=== PATIENT | female | born 2000 | race Caucasian/White ===

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

== ENCOUNTER 2019-01-13 00:18 | Emergency (ER) | payer OTHER ==
--- NOTE | 2019-01-13 00:44 | ED ---
Skin Complaint - HPI Summary HPI Summary: Patient is a 18 y/o F presenting to [facility] with complaints of blister to her right thigh. She states that she had right hip surgery on January 03, 2019 done at [facility]. Stitches were removed 02/08/19, steri-strips were placed. One fell off tonight, 01/12/19, to reveal a blister. Patient and father, who is in the room, are concerned for possible infection. On triage, pain is denied. Nothing is noted to aggravate/alleviate Sx. Home medications and allergies are reviewed. - History of Current Complaint Chief Complaint: EDHipPelvisInjury Time Seen by Provider: 01/13/19 00:38 Stated Complaint: HIP SWELLING AFTER SURG. Hx Obtained From: Patient Onset/Duration: Still Present Timing: Constant Current Severity: None Pain Intensity: 0 Pain Scale Used: 0-10 Numeric Skin Location: Other: - right thigh blister Aggravating Symptom(s): Nothing Alleviating Symptom(s): Nothing - Allergy/Home Medications Allergies/Adverse Reactions: Allergies Allergy/AdvReac Type Severity Reaction Status Date / Time No Known Allergies Allergy Verified 01/13/19 00:22 PMH/Surg Hx/FS Hx/Imm Hx Endocrine/Hematology History: Denies: Hx Anticoagulant Therapy, Hx Diabetes Cardiovascular History: Denies: Hx Cardiac Arrest, Hx Pacemaker/ICD History: Denies: Hx Dialysis, Hx Renal Disease Sensory History: Denies: Hx Hearing Aid Neurological History: Denies: Hx CVA Psychiatric History: Denies: Hx Panic Disorder - Surgical History Surgery Procedure, Year, and Place: [facility] Infectious Disease History: No Infectious Disease History: Denies: Traveled Outside the [place] in Last 30 Days - Family History Known Family History: Negative: Hypertension, Diabetes - Social History Alcohol Use: None Hx Substance Use: No Substance Use Type: Reports: None Hx Tobacco Use: No Smoking Status (MU): Never Smoked Tobacco Review of Systems Negative: Fever - on vitals, temp is 99.1 F Skin: Other - right thigh blister All Other Systems Reviewed And Are Negative: Yes Physical Exam - Summary Physical Exam Summary: Appearance: Well-appearing, Well-nourished, lying in bed comfortable Skin: The incisions overlying the right proximal thigh are clean and dry. There is a small area of blistering without swelling. Eyes: sclera anicteric, no conjunctival pallor ENT: mucous membranes moist Neck: deferred Respiratory: No signs of respiratory distress Cardiovascular: Appears well perfused, pulses are nml Abdomen: deferred Musculoskeletal: Moving all 4 extremities without obvious discomfort Neurological: Awake and alert, mentation is normal, speech is fluent and appropriate Psychiatric: affect is normal, does not appear anxious or depressed Triage Information Reviewed: Yes Vital Signs On Initial Exam: Initial Vitals Temp Pulse Resp BP Pulse Ox 99.1 F 84 15 119/82 96 01/13/19 00:20 01/13/19 00:20 01/13/19 00:20 01/13/19 00:20 01/13/19 00:20 Vital Signs Reviewed: Yes Procedures - Sedation Patient Received Moderate/Deep Sedation with Procedure: No Diagnostics - Vital Signs Vital Signs Temp Pulse Resp BP Pulse Ox 01/13/19 00:20 99.1 F 84 15 119/82 96 - Laboratory Lab Statement: Any lab studies that have been ordered have been reviewed, and results considered in the medical decision making process. Course/Dx - Course Course Of Treatment: Patient is a 18 y/o F presenting to [facility] with complaints of blister to her right thigh. She states that she had right hip surgery on January 03, 2019 done at [facility]. Stitches were removed 02/08/19, steri- strips were placed. One fell off [facility], 01/12/19, to reveal a blister. Patient and father, who is in the room, are concerned for possible infection. Skin: The incisions overlying the right proximal thigh are clean and dry. There is a small area of blistering without swelling. Patient was advised to place band-aid over blister to keep it from rupturing prematurely and informed that the blister will likely not need any further care. She was discharged to home. - Diagnoses Provider Diagnoses: Blister of right thigh Discharge ED - Sign-Out/Discharge Documenting (check all that apply): Patient Departure - discharge - Discharge Plan Condition: Stable Disposition: HOME Patient Education Materials: Blister (ED) Referrals: Gwendolyn Uriostegui MD [Primary Care Provider] - Additional Instructions: Your wound looks to be healing well. The area of concern is a blister, a complication of the steri strips that were holding the wound together. This is not a major problem, the blister should heal like any blister would and does not require any special care other than a bandaid to avoid rupturing it prematurely. - Attestation Statements Document Initiated by Scribe: Yes Documenting Scribe: JEANNIE PRIEST Provider For Whom Roshniibcruzito is Documenting (Include Credential): QUAN DE JESUS MD Scribe Attestation: IJEANNIE, scribed for QUAN DE JESUS MD on 01/13/19 at 0049. Status of Scribe Document: Ready
[2019-01-13 00:55] VITALS: BP 111/73
== END 2019-01-13 00:53 | disposition home or self-care (01) ==
LOC: ED 00:18
DX: S70.321A Blister (nonthermal), right thigh, initial encounter (principal); X58.XXXA Exposure to other specified factors, initial encounter; Y92.9 Unspecified place or not applicable; Z98.890 Other specified postprocedural states
CPT/HCPCS: 99282

== ENCOUNTER 2019-04-12 01:05 | Emergency (ER) | payer OTHER ==
--- NOTE | 2019-04-12 04:30 | ED ---
Lower Extremity - HPI Summary HPI Summary: Patient is a 18 y/o F presenting to [facility] with complaints of pain to her left first, second, and third toes. 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 Patient's emr trainer wrapped her toes in gauze and placed her in a boot. Patient took ibuprofen around 1700 and oxycodone around 2200. Patient had surgery for hip impingement previously and had the oxycodone leftover from this surgery. NKDA reported. Home medications and allergies are reviewed. No fever as vitals show temp of 98.3 F. - History of Current Complaint Chief Complaint: EDExtremityLower Stated Complaint: L FOOT INJURY PER PT Time Seen by Provider: 04/12/19 03:56 Hx Obtained From: Patient Mechanism Of Injury: Direct Blow Onset of Pain: Hours, Prior to Arrival Onset/Duration: Still Present Severity Currently: Severe Pain Intensity: 8 Pain Scale Used: 0-10 Numeric Timing: Constant, Lasting Hours Location: Is Discrete @ - first, second, and third toes of left foot Associated Signs And Symptoms: Positive: Other - pain at first, second, and third toes of left foot. Negative: Fever - Allergies/Home Medications Allergies/Adverse Reactions: Allergies Allergy/AdvReac Type Severity Reaction Status Date / Time No Known Allergies Allergy Verified 04/12/19 04:08 Home Medications: Home Medications Ondansetron ODT TAB* [Zofran 4 MG Odt TAB*] 4 mg PO Q8H PRN #10 tab.odt [Rx Confirmed 04/12/19] PMH/Surg Hx/FS Hx/Imm Hx Endocrine/Hematology History: Denies: Hx Anticoagulant Therapy, Hx Diabetes Cardiovascular History: Denies: Hx Cardiac Arrest, Hx Pacemaker/ICD History: Denies: Hx Dialysis, Hx Renal Disease Sensory History: Denies: Hx Hearing Aid Neurological History: Denies: Hx CVA Psychiatric History: Denies: Hx Panic Disorder - Surgical History Surgery Procedure, Year, and Place: [facility] Infectious Disease History: No Infectious Disease History: Denies: Traveled Outside the [place] in Last 30 Days - Family History Known Family History: Negative: Hypertension, Diabetes - Social History Alcohol Use: None Hx Substance Use: No Substance Use Type: Reports: None Hx Tobacco Use: No Smoking Status (MU): Never Smoked Tobacco Review of Systems - ROS Summary Review of Systems Summary: Home Medications Medication Instructions Recorded Confirmed Type Ondansetron ODT TAB* [Zofran 4 MG 4 mg PO Q8H PRN #10 tab.odt 04/26/18 04/12/19 Rx Odt TAB*] Negative: Fever - No fever as vitals show temp of 98.3 F. Positive: Myalgia - pain at first, second, and third toes of left foot All Other Systems Reviewed And Are Negative: Yes Physical Exam - Summary Physical Exam Summary: General: Well-developed, Well-nourished female. No acute distress. HEENT: Normocephalic, Atraumatic. Eyes: Conjuctiva normal, PERRL. Oropharynx: Clear, mucous membranes moist, (-) exudates. Neck: Soft, FROM, (-) lymphadenopathy, (-) thyromegaly, (-) JVD. Cardiovascular: Normal sinus rhythm, (-) murmur. Lungs: Clear to auscultation bilaterally (-) wheezes, (-) rales, (-) rhonchi. Abdomen: Soft, non-tender, non-distended, (-) organomegaly, normal bowel sounds. Back: (-) CVA tenderness Extremities: Significant ecchymosis to the first, second, and thirds phalanges of the left foot; fair range of motion, good pulses, bleeding from under the large toenail is controlled, nail is loose. Skin: Warm, dry, (-) rash. Neuro: Alert and oriented x3, moves all extremities equally. No ataxia. No gait disturbance. No sensory deficit. Normal strength, normal sensation. Psychiatric: Mood normal, affect normal. Triage Information Reviewed: Yes Vital Signs On Initial Exam: Initial Vitals Temp Pulse Resp BP Pulse Ox 98.3 F 65 14 114/79 97 04/12/19 01:13 04/12/19 01:13 04/12/19 01:13 04/12/19 01:13 04/12/19 01:13 Vital Signs Reviewed: Yes Procedures - Sedation Patient Received Moderate/Deep Sedation with Procedure: No Diagnostics - Vital Signs Vital Signs Temp Pulse Resp BP Pulse Ox 04/12/19 01:13 98.3 F 65 14 114/79 97 - Laboratory Lab Statement: Any lab studies that have been ordered have been reviewed, and results considered in the medical decision making process. - Radiology LEFT FOOT X-RAY Radiology Interpretation Completed By: ED Physician Summary of Radiographic Findings: NO FRACTURE, NO DISLOCATION, PENDING OFFICIAL REPORT. Lower Extremity Course/Dx - Course Course Of Treatment: 18-year-old female presents with injury of her left foot. She states earlier today while lifting weights with her team she dropped a 45 pound plate onto her first second and third toes. She has had significant pain since then. Her emr trainer wrapped her toes with gauze and has put her in a walking boot for precaution. Patient has good pulses distally. She has bleeding and separation from underneath her great toe nail. Patient was advised she will probably lose the toenail. Other nails appear intact. X-ray shows no obvious fracture. Patient declines crutches. Advised wrapping and protecting the toes. Use as tolerated. Follow-up with orthopedic. Follow-up sooner for any worsening symptoms. - Diagnoses Provider Diagnoses: Contusion of left foot Discharge ED - Sign-Out/Discharge Documenting (check all that apply): Patient Departure - DISCHARGE - Discharge Plan Condition: Stable Disposition: HOME Patient Education Materials: Foot Contusion (ED) Referrals: Gwendolyn Uriostegui MD [Primary Care Provider] - 3 Days Additional Instructions: PLEASE RETURN TO ED FOR ANY NEW OR WORSENING SYMPTOMS. PLEASE FOLLOWUP WITH YOUR PRIMARY CARE PHYSICIAN WITHIN THREE DAYS. - Billing Disposition and Condition Condition: STABLE Disposition: Home - Attestation Statements Document Initiated by Luisa: Yes Documenting Scribe: JEANNIE PRIEST Provider For Whom Luisa is Documenting (Include Credential): CASIMIRO NICOLE MD Scribe Attestation: JEANNIE Gonzalez, scribed for CASIMIRO NICOLE MD on 04/12/19 at 0643. Scribe Documentation Reviewed: Yes Provider Attestation: The documentation as recorded by the JEANNIE fishman accurately reflects the service I personally performed and the decisions made by me, CASIMIRO NICOLE MD Status of Scribe Document: Viewed
[2019-04-12 04:45] VITALS: BP 110/68
--- NOTE | 2019-04-12 08:37 | ED ---
Imaging and Labs Follow Up Follow Up Type: Imaging Imaging Result: IMPRESSION: 1. NONDISPLACED INTRA-ARTICULAR FRACTURE AT THE BASE OF THE FIRST DISTAL PHALANX. 2. SOFT TISSUE SWELLING ABOUT THE FIRST AND SECOND TOES. Patient Communication/Plan: called patient and left vm of results. told to miguel tape area and can follow up with ortho. Provider Diagnoses: Contusion of left foot
== END 2019-04-12 04:44 | disposition home or self-care (01) ==
LOC: ED 01:05
DX: S90.32XA Contusion of left foot, initial encounter (principal); S92.425A Nondisplaced fracture of distal phalanx of left great toe, initial encounter for closed fracture; W20.8XXA Other cause of strike by thrown, projected or falling object, initial encounter; Y93.B3 Activity, free weights; Y92.9 Unspecified place or not applicable
CPT/HCPCS: 99282